=== PATIENT | female | born 1985 | race American Indian/Alaskan Native ===

== ENCOUNTER 2017-06-19 14:34 | Emergency (ER) | payer OTHER ==
[2017-06-19 16:05] VITALS: BP 113/79
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
[2017-06-19] MEDS ORDERED: TYLENOL PO ONE (16:20)
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
== END 2017-06-19 18:50 | disposition home or self-care (01) ==
LOC: ED 14:34
DX: S13.4XXA Sprain of ligaments of cervical spine, initial encounter (principal); R51 Headache; J45.909 Unspecified asthma, uncomplicated; F17.200 Nicotine dependence, unspecified, uncomplicated; V49.49XA Driver injured in collision with other motor vehicles in traffic accident, initial encounter; Y93.89 Activity, other specified; Y92.89 Other specified places as the place of occurrence of the external cause; Y99.8 Other external cause status
CPT/HCPCS: 70450